=== PATIENT | female | born 1980 | race Caucasian/White ===

== ENCOUNTER 2018-07-05 03:19 | Inpatient (IN) | payer BC ==
--- NOTE | 2018-07-01 10:45 | PCM.LDHP ---
L&D History of Present Illness - General Date of Service: 07/01/18 Admit Problem/Dx: Admission Diagnosis/Problem Admission Diagnosis/Problem Source of Information: Patient History Limitations: Reports: No Limitations - History of Present Illness Introduction:: 38-year-old 001 with 1 prior vaginal delivery SORIN 07/26/18 patient has twin dichorionic diamnionic with presentation breech/breech and discordancy of twins and growth section at 37 weeks 0 days recommended by [facility] because of the discordancy and breech presentation. section is scheduled for Thursday07/05/18 at [address] Garcia expanded function dental assistant. Patient has been seeing MFM throughout this and with discordancy demonstrated on repeat ultrasounds section medically indicated at 37 weeks gestation. Group B strep collected today 07/01/18. Patient will have prophylactic antibiotics which cover group B strep at the time of her section. 02/04/18 blood type O negative, hemoglobin/hematocrit 11.7/34.0 platelets 253, 000. Rubella immune, RPR nonreactive, urine culture no growth after 2 days, hepatitis B surface antigen negative, HIV negative, GC and chlamydia probe negative. 05/21/18 hemoglobin/hematocrit 12.0/35.2 platelets 165,000. One hour OB glucose screen 131. On 05/27/18 3 hour glucose tolerance test fasting 85, 1 hour 154, two- hour 149, 3 hour 80. (Within normal range) antibody screen negative and rogue M given on 05/21/18 07/01/18 group B strep collected. Patient has been having twice weekly [facility] ultrasounds and discordancy has been demonstrated 17% for twin B and therefore medically indicated section at 37 weeks 0 days planned for Thursday07/05/18 This note was created, at least in part, by the use of [employer] voice dictation system. Inadvertent typographical errors, due to software recognition problems, may exist. Both twins reactive on nonstress test today 07/01/18 in clinic. Improves with: Reports: None Worsens with: Reports: None Associated Symptoms: Reports: N - Related Data Allergies/Adverse Reactions: Allergies Allergy/AdvReac Type Severity Reaction Status Date / Time Latex, Natural Rubber Allergy Rash Verified 09/27/15 19:26 Home Medications: Home Meds Bacitracin [Bacitracin Oint] 1 gm TOP DAILY #1 tube 09/27/15 [Rx] Past Medical History - Past Health History Medical/Surgical History: Denies Medical/Surgical History : 2 Para: 1 (1001) LMP (Approximate): (37 weeks 0 days at time of planned surgery with history of twin dichorionic diamnionic and discordancy of 17%) Social & Family History - Family History : Reports: Other (See Below) (Maternal grandmother polycystic kidneys) Other Family History: Family history of infant with Down syndrome H&P Review of Systems - Review of Systems: Review Of Systems: See Below General: Reports: No Symptoms HEENT: Reports: No Symptoms Pulmonary: Reports: No Symptoms Cardiovascular: Reports: No Symptoms Gastrointestinal: Reports: No Symptoms Genitourinary: Reports: No Symptoms Musculoskeletal: Reports: No Symptoms Skin: Reports: No Symptoms Psychiatric: Reports: No Symptoms Neurological: Reports: No Symptoms Hematologic/Lymphatic: Reports: No Symptoms Immunologic: Reports: No Symptoms L&D Exam - Exam Exam: See Below - OB Specific Fundal Height In cm: 43 Movement: Active Heart Tones: Present Heart Tones per Min: 140 (140/135) Heart Rate (FHR) Variability: Moderate (6-25 bmp) Presentation: Breech (Twin gestation breech/breech) - Exam General: Alert, Oriented HEENT: Conjunctiva Clear, Mucosa Moist & [place] Neck: Supple, Trachea Midline Lungs: Clear to Auscultation, Normal Respiratory Effort Cardiovascular: Regular Rate, Regular Rhythm GI/Abdominal Exam: Normal Bowel Sounds, Soft, Non-Tender Genitourinary: Normal external exam (GBS collected 07/01/18) Extremities: Normal Inspection, Normal Range of Motion, Non-Tender, No Pedal Edema, Normal Capillary Refill Skin: Warm, Dry, Intact Neurological: Reflexes Equal Bilateral Psychiatric: Alert, Normal Affect, Normal Mood - Problem List (1) 37 weeks gestation of SNOMED Code(s): 59653925 ICD Code: Z3A.37 - 37 WEEKS GESTATION OF Status: Acute (2) Twin following selective reduction in third trimester SNOMED Code(s): 62352218, 532232448 ICD Code: O30.003 - TWIN PREG, UNSP NUM PLCNTA & AMNIO SACS, THIRD TRIMESTER ; O31.33X0 - CONT PREG AFT ELCTV FETL RDCT OF 1 FTS OR MORE,3RD TRI, UNSP Status: Acute (3) Breech presentation of fetus SNOMED Code(s): 8114822 ICD Code: O32.1XX0 - MATERNAL CARE FOR BREECH PRESENTATION, UNSP Status: Acute Qualifiers: Fetus number: fetus 1 of multiple gestation Qualified Code(s): O32.1XX1 - Maternal care for breech presentation, fetus 1 (4) Advanced maternal age (AMA) in SNOMED Code(s): 217634469 ICD Code: MAK1481 - Status: Acute (5) Discordant growth in twin gestation SNOMED Code(s): 402339430 ICD Code: O30.009 - TWIN , UNSP NUM PLCNTA & AMNIO SACS, UNSP TRIMESTER; O36.5990 - MATERN CARE FOR OTH OR SUSP POOR FETL GRTH, UNSP TRI, UNSP Status: Acute Qualifiers: Fetus number: fetus 2 of multiple gestation Problem List Initiated/Reviewed/Updated: No Assessment/Plan Comment:: Plan medically indicated section per recommendations of maternal medicine Jesse at 37 weeks 0 days due to twin breech/breech with 17 % discordancy
[~2018-07-05 03:19] MED LIST: Sodium Chloride 0.9% 10 ML Syringe FLUSH PRN
[2018-07-05] MEDS ORDERED: Nalbuphine 20 MG/ML 1 ML Syringe IVPUSH PRN (05:00)
[2018-07-05] MEDS ORDERED: Citric Acid/Sodium Citrate Solution 30 ML Cup PO ONE (06:00)
[2018-07-05] MEDS ORDERED: Oxytocin/Lactated Ringers 20 UNIT/1,000 ML BAG IV SCH (06:00)
[2018-07-05] MEDS ORDERED: Metoclopramide 10 MG/2 ML SDV IVPUSH ONE (06:00)
[2018-07-05] MEDS ORDERED: Bupivacaine 0.5% 30 ML SDV ONE (06:36)
[2018-07-05] MEDS ORDERED: Lactated Ringers 2,000 ML ONE (06:37)
[2018-07-05] MEDS ORDERED: Morphine PF 1 MG/ML Amp ONE (06:37)
[2018-07-05] MEDS ORDERED: ceFAZolin 1 GM Vial ONE (06:37)
[2018-07-05] MEDS ORDERED: Oxytocin 10 Units/1 ML SDV ONE ×2 (06:37→06:38)
[2018-07-05] MEDS ORDERED: Ketorolac 30 MG/ML SDV ONE (06:37)
[2018-07-05] MEDS ORDERED: Ondansetron 4 MG/2 ML SDV ONE (06:37)
[2018-07-05] MEDS ORDERED: ceFAZolin 2 GM in Premix Bag 1 BAG IV ONE (06:45)
--- NOTE | 2018-07-05 06:58 | PCM.PREANE ---
Preanesthetic Assessment - Procedure Proposed Procedure: c section primary - Anesthesia/Transfusion/Family Hx Anesthesia History: Prior Anesthesia Without Reaction Family History of Anesthesia Reaction: No Transfusion History: No Prior Transfusion(s) - Review of Systems General: No Symptoms Pulmonary: No Symptoms Cardiovascular: No Symptoms Gastrointestinal: No Symptoms Neurological: No Symptoms Other: Reports: None - Physical Assessment NPO Status Date: 07/04/18 NPO Status Time: 19:00 Pulse: 73 O2 Sat by Pulse Oximetry: 100 Respiratory Rate: 14 Blood Pressure: 108/80 Temperature: 97.9 F Height: 5 ft 8 in Weight: 91.626 kg ASA Class: 2 Mental Status: Alert & Oriented x3 Airway Class: Mallampati = 1 Dentition: Reports: Normal Dentition Thyro-Mental Finger Breadths: 3 Mouth Opening Finger Breadths: 3 ROM/Head Extension: Full Lungs: Clear to Auscultation, Normal Respiratory Effort Cardiovascular: Regular Rate, Regular Rhythm - Lab Values: Laboratory Last Values WBC 10.98 K/mm3 (3.98-10.04) H 07/05/18 05:51 RBC 3.71 M/mm3 (3.98-5.22) L 07/05/18 05:51 Hgb 12.0 gm/L (11.2-15.7) 07/05/18 05:51 Hct 33.7 % (34.1-44.9) L 07/05/18 05:51 MCV 90.8 fl (79.4-94.8) 07/05/18 05:51 MCH 32.3 pg (25.6-32.2) H 07/05/18 05:51 MCHC 35.6 g/dl (32.2-35.5) H 07/05/18 05:51 RDW Std Deviation 42.4 fL (36.4-46.3) 07/05/18 05:51 Plt Count 144 K/mm3 (182-369) L 07/05/18 05:51 MPV 11.1 fl (9.4-12.3) 07/05/18 05:51 Neut % (Auto) 74.5 % (34.0-71.1) H 07/05/18 05:51 Lymph % (Auto) 17.8 % (19.3-51.7) L 07/05/18 05:51 [place]ansom % (Auto) 4.9 % (4.7-12.5) 07/05/18 05:51 Eos % (Auto) 2.5 (0.7-5.8) 07/05/18 05:51 Baso % (Auto) 0.3 % (0.1-1.2) 07/05/18 05:51 Neut # (Auto) 8.19 K/mm3 (1.56-6.13) H 07/05/18 05:51 Lymph # (Auto) 1.95 K/mm3 (1.18-3.74) 07/05/18 05:51 Ransom # (Auto) 0.54 K/mm3 (0.24-0.36) H 07/05/18 05:51 Eos # (Auto) 0.27 K/mm3 (0.04-0.36) 07/05/18 05:51 Baso # (Auto) 0.03 K/mm3 (0.01-0.08) 07/05/18 05:51 - Allergies Allergies/Adverse Reactions: Allergies Allergy/AdvReac Type Severity Reaction Status Date / Time Latex, Natural Rubber Allergy Rash Verified 09/27/15 19:26 - Blood Blood Available: No - Acknowledgements Anesthesia Type Planned: Spinal Pt an Appropriate Candidate for the Planned Anesthesia: Yes Alternatives and Risks of Anesthesia Discussed w Pt/Guardian: Yes Pt/Guardian Understands and Agrees with Anesthesia Plan: Yes PreAnesthesia Questionnaire - Past Health History Medical/Surgical History: Denies Medical/Surgical History HEENT History: Reports: None Cardiovascular History: Reports: None Respiratory History: Reports: None Gastrointestinal History: Reports: GERD Other Gastrointestinal History: Past 2 weeks of twin gestation; no meds required WARE CARRIER History: Reports: : 2 (37 weeks) Para: 1 Musculoskeletal History: Reports: None Hematologic History: Reports: Folic Acid - Infectious Disease History Infectious Disease History: Reports: None - Past Surgical History HEENT Surgical History: Reports: Oral Surgery Other HEENT Surgeries/Procedures: [place] teeth extracted age 13 yo. GI Surgical History: Reports: None Dermatological Surgical History: Reports: None - History Comment History Comment: vits. fe. folic acid. asa. ca. vit c - SUBSTANCE USE Smoking Status *Q: Never Smoker Tobacco Use Within Last Twelve Months: No Second Hand Smoke Exposure: No Days Per Week of Alcohol Use: 0 Recreational Drug Use History: No - HOME MEDS Home Medications: Home Meds Bacitracin [Bacitracin Oint] 1 gm TOP DAILY #1 tube 09/27/15 [Rx] - CURRENT (IN HOUSE) MEDS Current Meds: Current Medications Cefazolin Sodium/Dextrose 2 gm (/ Premix) 50 mls @ 100 mls/hr IV ONETIME ONE Stop: 07/05/18 07:14 Lactated Ringer's (Ringers, Lactated) 1,000 mls @ 125 mls/hr IV ASDIRECTED MAU Oxytocin/Lactated Ringer's (Pitocin In Lr 20 Units/1,000 Ml) 20 unit in 1,000 mls @ 500 mls/hr IV TITRATE MAU; Protocol Nalbuphine HCl (Nubain) 10 mg IVPUSH Q2H PRN PRN Reason: pain Sodium Chloride (Saline Flush) 10 ml FLUSH ASDIRECTED PRN PRN Reason: Keep Vein Open Discontinued Medications Bupivacaine HCl (Marcaine 0.5%) Confirm Administered Dose 30 ml .ROUTE .STK-MED ONE Stop: 07/05/18 06:37 Cefazolin Sodium (Ancef) Confirm Administered Dose 2 gm .ROUTE .STK-MED ONE Stop: 07/05/18 06:38 Citric Acid/Sodium Citrate (Bicitra Solution) 30 ml PO ONETIME ONE Stop: 07/05/18 06:01 Lactated Ringer's (Ringers, Lactated) Confirm Administered Dose 2,000 mls @ as directed .ROUTE .STK-MED ONE Stop: 07/05/18 06:38 Ketorolac Tromethamine (Toradol) Confirm Administered Dose 30 mg .ROUTE .STK- MED ONE Stop: 07/05/18 06:38 Metoclopramide HCl (Reglan) 10 mg IVPUSH ONETIME ONE Stop: 07/05/18 06:01 Morphine Sulfate (Duramorph Pf) Confirm Administered Dose 1 mg .ROUTE .STK-MED ONE Stop: 07/05/18 06:38 Ondansetron HCl (Zofran) Confirm Administered Dose 4 mg .ROUTE .STK-MED ONE Stop: 07/05/18 06:38 Oxytocin (Pitocin) Confirm Administered Dose 10 unit .ROUTE .STK-MED ONE Stop: 07/05/18 06:38 Oxytocin (Pitocin) Confirm Administered Dose 10 unit .ROUTE .[facility]-MED ONE Stop: 07/05/18 06:39
[2018-07-05] MEDS: Lactated Ringers 1,000 ML IV SCH ×2 (07:08→07:09)
[2018-07-05] MEDS ORDERED: Phenylephrine/Normal Saline 100 MCG/ML 10 ML Syringe ONE (07:26)
[2018-07-05] MEDS ORDERED: ePHEDrine 50 MG/ML SDV ONE (07:26)
[2018-07-05] MEDS ORDERED: diphenhydrAMINE 50 MG/ML SDV IVPUSH PRN ×2 (07:28→10:10)
[2018-07-05] MEDS ORDERED: Ondansetron 4 MG/2 ML SDV IVPUSH PRN (07:28)
[2018-07-05] MEDS ORDERED: fentaNYL 100 MCG/2 ML SDV IVPUSH PRN (07:28)
--- NOTE | 2018-07-05 08:17 | PCM.POSTAN ---
POST ANESTHESIA ASSESSMENT - MENTAL STATUS Mental Status: Alert, Oriented - VITAL SIGNS Pulse Rate: 74 SaO2: 98 Resp Rate: 14 Blood Pressure: 109/69 Temperature: 98 F - RESPIRATORY Respiratory Status: Respiratory Rate WNL, Airway Patent, O2 Saturation Stable, Supplemental Oxygen - CARDIOVASCULAR CV Status: Pulse Rate WNL, Blood Pressure Stable - GASTROINTESTINAL GI Status: No Symptoms - PAIN Pain Score: 0 - POST OP HYDRATION Hydration Status: Adequate & Stable
--- NOTE | 2018-07-05 08:28 | PCM.OPNOTE ---
- General Post-Op/Procedure Note Date of Surgery/Procedure: 07/05/18 Operative Procedure(s): Primary low segment transverse Pre Op Diagnosis: Breech breech presentation 37 weeks 0 days estimated gestational age early delivery medically indicated and recommended by maternal- medicine because of suspected 17% discordance and twins Post-Op Diagnosis: Same Anesthesia Technique: Spinal Primary Surgeon: Wilson Santos Secondary Surgeon: Adrián Winters Anesthesia Provider: Nick Benton Reason Kier Drier Was Necessary: Asst. surgery, decrease comorbidity and mortality. Retraction at surgery. Role of Kier Drier: Asst. surgery, decrease comorbidity and mortality. Retraction at surgery. Fluid Replacement, Intraop: 2,500 Output, Urine Amount: 150 EBL in mLs: 1,000 Drain/Tube Comments:: [place] Complications: None Condition: Good Free Text/Narrative:: Intake & Output 07/04/18 07/05/18 07/05/18 22:59 06:59 14:59 Intake Total 1000 Balance 1000 Patient was transported to the operating room and placed under spinal anesthesia in the supine position with a wedge under the right hip and right flank. SCDs in place and functioning prior surgery. Ancef 2 g given IV preop. Prepared and draped in a sterile fashion adequate level of anesthesia was confirmed and patient's was brought to the operating room. Injecting 20 mL of 0.25% Marcaine area of the planned incision which had been marked with a surgical marking pen, Pfannenstiel incision was made and care was sharp section to into the anterior fascia peritoneal cavity was entered without difficulty bladder flap. Pushed caudad low segment transverse performed. Twin A was delivered at 0738 hrs. breech presentation left sacrum anterior, having delivered breech the legs were carefully flexed and extended and delivered without difficulty and right and left arm then flexed and delivered without difficulty head was delivered without difficulty. The cord was marked with one plastic clamp for pediatrics and one straight clamp for OB. Cord blood was not collected into both twins delivered. Twin B was delivered by performing amniotomy and confirming both feet grasped and delivered double footling breech , and carefully flexing upper extremities and head delivered without difficulty. Twin B umbilical cord clamped with 2 plastic clamps were pediatrics and one curved clamp for OB. Twin A delivered at 0738 hrs. twin B delivered at 0739 hrs. twin A 9/9 twin B 8/8 twin A weight 20/4/40 grams/5 lbs. 6 oz. twin B 3030 g/[address] Garcia director of undergraduate admissions in attendance at delivery. Cord blood was then collected from twin A's and twin B's cord. The center was removed manually inspected and sent to pathology for tissue evaluation. Pathology form was completed after surgery. Endometrial cavity was inspected free of membranes and remnants of placenta sponge needle pack and instrument count correct times one the uterine incision closed in 2 layers with running locking suture of 0 Monocryl for the first layer, second layer a modified Lembert imbricating suture. 4 additional [id number] sutures were placed to the left angle and one in the middle and one the right side of the uterine incision for hemostasis. Both tubes and ovaries were normal. Clots were cleaned from the gutters and cul-de-sac and uterus replaced into the abdominal cavity. Sponge needle pack and aspirin count were correct 2 and the abdominal cavity was closed utilizing #1 PDS for the anterior fascia and skin was closed with subcuticular 3-0 Monocryl Dermabond Preneo applied. Patient was transported postanesthesia care unit in satisfactory condition no blood transfusions were required. Clots were cleaned from the vagina at the end of the procedure prior transported postanesthesia care unit. Toradol given at 0800 hrs. This note was created, at least in part, by the use of [employer] voice dictation system. Inadvertent typographical errors, due to software recognition problems, may exist.
[2018-07-05] MEDS ORDERED: ePHEDrine 50 MG/ML SDV IVPUSH PRN (10:10)
[2018-07-05] MEDS ORDERED: Ibuprofen 600 MG Tab PO PRN (10:10)
[2018-07-05] MEDS ORDERED: Lanolin 100% Cream 7 GM Tube TOP PRN (10:10)
[2018-07-05] MEDS ORDERED: Ondansetron 4 MG/2 ML SDV IV PRN (10:10)
[2018-07-05] MEDS ORDERED: Acetaminophen 325 MG Tab PO PRN (10:10)
[2018-07-05] MEDS ORDERED: Dextrose 5%-Lactated Ringers 1,000 ML IV SCH (10:10)
[2018-07-05] MEDS ORDERED: Docusate Sodium 100 MG Cap PO PRN (10:10)
[2018-07-05] MEDS ORDERED: Naloxone 0.4 MG/ML SDV IVPUSH PRN (10:10)
[2018-07-05] MEDS ORDERED: Sodium Chloride 0.9% 10 ML Syringe FLUSH PRN (10:10)
[2018-07-05] MEDS: Ketorolac 30 MG/ML SDV IVPUSH PRN ×2 (14:02→20:21)
[2018-07-05] MEDS: Simethicone 80 MG Tab.Chew PO SCH ×3 (14:09→19:29)
[2018-07-06] MEDS: Simethicone 80 MG Tab.Chew PO SCH ×6 (01:13→23:00)
[2018-07-06] MEDS: Ketorolac 30 MG/ML SDV IVPUSH PRN (02:03)
[2018-07-06] MEDS: Acetaminophen/oxyCODONE 325-5 MG Tab PO PRN ×3 (07:52→20:06)
--- NOTE | 2018-07-06 08:11 | PCM48HPAN ---
Post Anesthesia Note - EVALUATION WITHIN 48HRS OF ANESTHETIC Vital Signs in Normal Range: Yes Patient Participated in Evaluation: Yes Respiratory Function Stable: Yes Airway Patent: Yes Cardiovascular Function Stable: Yes Hydration Status Stable: Yes Pain Control Satisfactory: Yes Nausea and Vomiting Control Satisfactory: Yes Mental Status Recovered: Yes
--- NOTE | 2018-07-06 13:13 | PCM.SN ---
- Free Text/Narrative Note: day one/postop day one Afebrile. Patient breast-feeding. Abdomen is soft uterus involuting normally incision normal no heavy vaginal bleeding no leg cramping. Twin A is not latched on as yet. Patient may not be ready for dismissal tomorrow.
[2018-07-06] MEDS: Ibuprofen 600 MG Tab PO PRN (20:04)
[2018-07-07] MEDS: Acetaminophen/oxyCODONE 325-5 MG Tab PO PRN ×4 (02:10→21:18)
[2018-07-07] MEDS: Ibuprofen 600 MG Tab PO PRN ×2 (05:36→13:00)
--- NOTE | 2018-07-07 08:33 | PCM.SN ---
- Free Text/Narrative Note: PP/POD #2 Afebrile. Incision normal. Uterus involuting normally, no heavy vaginal bleeding , no leg cramping. Probably home tomorrow
[2018-07-07] MEDS: Simethicone 80 MG Tab.Chew PO SCH ×4 (08:45→21:18)
[2018-07-08] MEDS: Acetaminophen/oxyCODONE 325-5 MG Tab PO PRN ×2 (03:49→08:32)
[2018-07-08] MEDS: Simethicone 80 MG Tab.Chew PO SCH (08:31)
--- NOTE | 2018-07-08 08:31 | PCM.DCSUM1 ---
Discharge Summary - Hospital Course Free Text/Narrative:: After obtaining appropriate consent she was taken the the operating room where general anesthetic was administered. She was prepped and draped in the usual sterile fashion in high lithotomy using asher stirrups. A weighted speculum was placed in the posterior vagina and a carolina utilized anteriorly to visualize the cervix which was grasped with a single toothed tenaculum and placed on traction. A uterine manipulator was then advanced into the uterus. Attention was re-directed to the abdomen and a 5 mm skin incision was made in the patient's umbilical fold. A blunt tipped trocar was advanced under direct visualization using the laparoscope. The abdomen was insufflated and no evidence of injury upon entry was noted. General survey of the abdomen reveal [ normal] uterus and ovaries. A 5 mm incision was then made on each the right and left side and a blunt tipped trocar was advanced under direct visualization. The left ovary was elevated and the IP ligement was cauterized and transected with the Ligasure after the ureter was identified. The dissection was continued to the round ligament. The round ligament was then cauterized and transected. The bladder flap was created starting on the left. Bladder was dissected off the cervix. The uterine artery and broad ligament on the left was serial cauterized and transected to the level of the cervix. The right IP, round ligament, broad ligament and uterine artery were cauterized and transected in a similar manner. No bleeding was noted at any of the pedicles. The pelvis was irrigated and suctioned. All instruments were removed and the gas was released. Attention was redirected to the vagina. Area of intended colpotomy injected with 25% marcaine with epinepherine. Incision made with scapel. The posterior cul-de-sac was entered sharply with the Ferrara scissors. The long weighted speculum was placed. The uterosacral ligaments were identified bilaterally, clamped, transected with ligasure. These were tagged for later reference. A second clamp was placed onto the cardinal ligament bilaterally, this was transected and ligasure ligated. Attention was turned anteriorly. Blunt and sharp dissection was used to mobilize the bladder off the cervix. The anterior cul-de-sac was [default value ] entered sharply. The cardinal ligament was serially clamped, transected and suture ligated. The Boni retractor was advanced. The cardinal ligament was then clamped to met the dissection from above including the uterine vessels bilaterally. The specimen was delivered and handed off. Inspection of the pedicles noted hemostasis. The posterior cuff was run with 0- vicryl in a running fashion. The cuff was closed using 0 vicryl figure of eights in a vertical fashion. The retractors were removed and the abdomen was reinsufflated. All pedicles were hemostatic. All instruments were removed from the abdomen and the incisions were closed with 4-0 vicryl and covered with dermabond. The cystoscope was obtained. Clear urine was noted. A survey of the bladder revealed no injury, bilateral ureteral jets and no stitches present. The bladder was drained. She was repositioned supine, draping removed and then taken to PACU in stable condition. Needle, sponge and instrument counts were correct X 3. HPI Initial Comments: After obtaining appropriate consent she was taken the the operating room where general anesthetic was administered. She was prepped and draped in the usual sterile fashion in high lithotomy using asher stirrups. A weighted speculum was placed in the posterior vagina and a carolina utilized anteriorly to visualize the cervix which was grasped with a single toothed tenaculum and placed on traction. A uterine manipulator was then advanced into the uterus. Attention was re-directed to the abdomen and a 5 mm skin incision was made in the patient's umbilical fold. A blunt tipped trocar was advanced under direct visualization using the laparoscope. The abdomen was insufflated and no evidence of injury upon entry was noted. General survey of the abdomen reveal [ normal] uterus and ovaries. A 5 mm incision was then made on each the right and left side and a blunt tipped trocar was advanced under direct visualization. The left ovary was elevated and the IP ligement was cauterized and transected with the Ligasure after the ureter was identified. The dissection was continued to the round ligament. The round ligament was then cauterized and transected. The bladder flap was created starting on the left. Bladder was dissected off the cervix. The uterine artery and broad ligament on the left was serial cauterized and transected to the level of the cervix. The right IP, round ligament, broad ligament and uterine artery were cauterized and transected in a similar manner. No bleeding was noted at any of the pedicles. The pelvis was irrigated and suctioned. All instruments were removed and the gas was released. Attention was redirected to the vagina. Area of intended colpotomy injected with 25% marcaine with epinepherine. Incision made with scapel. The posterior cul-de-sac was entered sharply with the Ferrara scissors. The long weighted speculum was placed. The uterosacral ligaments were identified bilaterally, clamped, transected with ligasure. These were tagged for later reference. A second clamp was placed onto the cardinal ligament bilaterally, this was transected and ligasure ligated. Attention was turned anteriorly. Blunt and sharp dissection was used to mobilize the bladder off the cervix. The anterior cul-de-sac was [default value ] entered sharply. The cardinal ligament was serially clamped, transected and suture ligated. The Boni retractor was advanced. The cardinal ligament was then clamped to met the dissection from above including the uterine vessels bilaterally. The specimen was delivered and handed off. Inspection of the pedicles noted hemostasis. The posterior cuff was run with 0- vicryl in a running fashion. The cuff was closed using 0 vicryl figure of eights in a vertical fashion. The retractors were removed and the abdomen was reinsufflated. All pedicles were hemostatic. All instruments were removed from the abdomen and the incisions were closed with 4-0 vicryl and covered with dermabond. The cystoscope was obtained. Clear urine was noted. A survey of the bladder revealed no injury, bilateral ureteral jets and no stitches present. The bladder was drained. She was repositioned supine, draping removed and then taken to PACU in stable condition. Needle, sponge and instrument counts were correct X 3. Brief History: After obtaining appropriate consent she was taken the the operating room where general anesthetic was administered. She was prepped and draped in the usual sterile fashion in high lithotomy using asher stirrups. A weighted speculum was placed in the posterior vagina and a carolina utilized anteriorly to visualize the cervix which was grasped with a single toothed tenaculum and placed on traction. A uterine manipulator was then advanced into the uterus. Attention was re-directed to the abdomen and a 5 mm skin incision was made in the patient's umbilical fold. A blunt tipped trocar was advanced under direct visualization using the laparoscope. The abdomen was insufflated and no evidence of injury upon entry was noted. General survey of the abdomen reveal [normal] uterus and ovaries. A 5 mm incision was then made on each the right and left side and a blunt tipped trocar was advanced under direct visualization. The left ovary was elevated and the IP ligement was cauterized and transected with the Ligasure after the ureter was identified. The dissection was continued to the round ligament. The round ligament was then cauterized and transected. The bladder flap was created starting on the left. Bladder was dissected off the cervix. The uterine artery and broad ligament on the left was serial cauterized and transected to the level of the cervix. The right IP, round ligament, broad ligament and uterine artery were cauterized and transected in a similar manner. No bleeding was noted at any of the pedicles. The pelvis was irrigated and suctioned. All instruments were removed and the gas was released. Attention was redirected to the vagina. Area of intended colpotomy injected with 25% marcaine with epinepherine. Incision made with scapel. The posterior cul-de-sac was entered sharply with the Ferrara scissors. The long weighted speculum was placed. The uterosacral ligaments were identified bilaterally, clamped, transected with ligasure. These were tagged for later reference. A second clamp was placed onto the cardinal ligament bilaterally, this was transected and ligasure ligated. Attention was turned anteriorly. Blunt and sharp dissection was used to mobilize the bladder off the cervix. The anterior cul-de-sac was [default value] entered sharply. The cardinal ligament was serially clamped, transected and suture ligated. The Boni retractor was advanced. The cardinal ligament was then clamped to met the dissection from above including the uterine vessels bilaterally. The specimen was delivered and handed off. Inspection of the pedicles noted hemostasis. The posterior cuff was run with 0-vicryl in a running fashion. The cuff was closed using 0 vicryl figure of eights in a vertical fashion. The retractors were removed and the abdomen was reinsufflated. All pedicles were hemostatic. All instruments were removed from the abdomen and the incisions were closed with 4-0 vicryl and covered with dermabond. The cystoscope was obtained. Clear urine was noted. A survey of the bladder revealed no injury, bilateral ureteral jets and no stitches present. The bladder was drained. She was repositioned supine, draping removed and then taken to PACU in stable condition. Needle, sponge and instrument counts were correct X 3. Diagnosis: Stroke: No - Discharge Data Discharge Date: 07/08/18 Discharge Disposition: Home, Self-Care 01 Condition: Good - Discharge Diagnosis/Problem(s) (1) 37 weeks gestation of SNOMED Code(s): 08265267 ICD Code: Z3A.37 - 37 WEEKS GESTATION OF Status: Acute Current Visit: No (2) Twin following selective reduction in third trimester SNOMED Code(s): 73762061, 939849026 ICD Code: O30.003 - TWIN PREG, UNSP NUM PLCNTA & AMNIO SACS, THIRD TRIMESTER ; O31.33X0 - CONT PREG AFT ELCTV FETL RDCT OF 1 FTS OR MORE,3RD TRI, UNSP Status: Acute Current Visit: No (3) Breech presentation of fetus SNOMED Code(s): 9933259 ICD Code: O32.1XX0 - MATERNAL CARE FOR BREECH PRESENTATION, UNSP Status: Acute Current Visit: No Qualifiers: Fetus number: fetus 1 of multiple gestation Qualified Code(s): O32.1XX1 - Maternal care for breech presentation, fetus 1 (4) Advanced maternal age (AMA) in SNOMED Code(s): 523619580 ICD Code: USE0529 - Status: Acute Current Visit: No (5) Discordant growth in twin gestation SNOMED Code(s): 962633415 ICD Code: O30.009 - TWIN , UNSP NUM PLCNTA & AMNIO SACS, UNSP TRIMESTER; O36.5990 - MATERN CARE FOR OTH OR SUSP POOR FETL GRTH, UNSP TRI, UNSP Status: Acute Current Visit: No Qualifiers: Fetus number: fetus 2 of multiple gestation - Patient Summary/Data Operative Procedure(s) Performed: Primary low segment transverse Complications: none Consults: none Hospital Course: uneventful - Patient Instructions Diet: Usual Diet as Tolerated Driving: Do Not Drive (x2 weeks) Showering/Bathing: May Shower, No Tub Bathing/Swimming (x6 weeks) Wound/Incision Care: Keep Operative Site/Wound Site Clean and Dry Notify Provider of: Fever, Increased Pain, Swelling and Redness, Drainage, Nausea and/or Vomiting - Discharge Plan *PRESCRIPTION DRUG MONITORING PROGRAM REVIEWED*: Yes *COPY OF PRESCRIPTION DRUG MONITORING REPORT IN PATIENT CRISTINO: Yes Prescriptions/Med Rec: Acetaminophen/oxyCODONE [Percocet 325-5 MG] 1 tab PO BEDTIME PRN #10 tablet PRN Reason: Pain (Moderate 4-6) Home Medications: Home Meds Bacitracin [Bacitracin Oint] 1 gm TOP DAILY #1 tube 09/27/15 [Rx] Acetaminophen [Tylenol] 650 mg PO Q6H PRN tablet 07/08/18 [Rx] Acetaminophen/oxyCODONE [Percocet 325-5 MG] 1 tab PO BEDTIME PRN #10 tablet [Rx] Docusate Sodium [Colace] 100 mg PO Q12H PRN cap 07/08/18 [Rx] Ibuprofen [Motrin] 200 mg PO Q6H PRN tablet 07/08/18 [Rx] Lanolin [Lansinoh HPA] 1 applic TOP ASDIRECTED PRN tube 07/08/18 [Rx] Simethicone 80 mg PO PCBED tab.chew 07/08/18 [Rx] Referrals: Wilson Santos MD [Primary Care Provider] - (07/20/18) - Discharge Summary/Plan Comment DC Time >30 min.: No - Patient Data Vitals - Most Recent: Last Vital Signs Temp 97.9 F 07/08/18 03:53 Pulse 71 07/08/18 03:53 Resp 12 07/08/18 03:53 BP 127/75 07/08/18 03:53 Pulse Ox 97 07/08/18 03:53 Weight - Most Recent: 202 lb Med Orders - Current: Current Medications Acetaminophen (Tylenol) 650 mg PO Q4H PRN PRN Reason: mild pain or fever Diphenhydramine HCl (Benadryl) 25 mg IVPUSH Q6H PRN PRN Reason: Itching or Nausea Docusate Sodium (Colace) 100 mg PO Q12H PRN PRN Reason: Constipation Last Admin: 07/07/18 21:38 Dose: 100 mg Emollient Ointment (Lansinoh Hpa) 0 gm TOP ASDIRECTED PRN PRN Reason: Sore Nipples Ephedrine Sulfate (Ephedrine Sulfate) 5 mg IVPUSH SEECOMMENT PRN PRN Reason: Other Ibuprofen (Motrin) 600 mg PO Q6H PRN PRN Reason: mild pain or fever Last Admin: 07/07/18 13:00 Dose: 600 mg Naloxone HCl (Narcan) 0.1 mg IVPUSH SEECOMMENT PRN PRN Reason: Respiratory Depression Ondansetron HCl (Zofran) 4 mg IV Q8H PRN PRN Reason: Nausea/Vomiting Oxycodone/Acetaminophen (Percocet 325-5 Mg) 1 tab PO Q4H PRN PRN Reason: Pain (moderate 4-6) Last Admin: 07/08/18 03:49 Dose: 1 tab Simethicone (Simethicone) 80 mg PO PCBED MAU Last Admin: 07/07/18 21:18 Dose: 80 mg Sodium Chloride (Saline Flush) 10 ml FLUSH ASDIRECTED PRN PRN Reason: Keep Vein Open Discontinued Medications Bupivacaine HCl (Marcaine 0.5%) Confirm Administered Dose 30 ml .ROUTE .STK-MED ONE Stop: 07/05/18 06:37 Last Admin: 07/05/18 07:34 Dose: 20 ml Cefazolin Sodium (Ancef) Confirm Administered Dose 2 gm .ROUTE .STK-MED ONE Stop: 07/05/18 06:38 Citric Acid/Sodium Citrate (Bicitra Solution) 30 ml PO ONETIME ONE Stop: 07/05/18 06:01 Last Admin: 07/05/18 07:08 Dose: 30 ml Diphenhydramine HCl (Benadryl) 25 mg IVPUSH Q6H PRN PRN Reason: pruritis Ephedrine Sulfate (Ephedrine Sulfate) Confirm Administered Dose 50 mg .ROUTE .STK-MED ONE Stop: 07/05/18 07:27 Fentanyl (Sublimaze) 50 mcg IVPUSH Q5M PRN PRN Reason: Pain Cefazolin Sodium/Dextrose 2 gm (/ Premix) 50 mls @ 100 mls/hr IV ONETIME ONE Stop: 07/05/18 07:14 Lactated Ringer's (Ringers, Lactated) 1,000 mls @ 125 mls/hr IV ASDIRECTED MAU Last Admin: 07/05/18 07:09 Dose: 125 mls/hr Oxytocin/Lactated Ringer's (Pitocin In Lr 20 Units/1,000 Ml) 20 unit in 1,000 mls @ 500 mls/hr IV TITRATE MAU; Protocol Lactated Ringer's (Ringers, Lactated) Confirm Administered Dose 2,000 mls @ as directed .ROUTE .[facility]-MED ONE Stop: 07/05/18 06:38 Dextrose/Lactated Ringer's (Dextrose 5%-Lactated Ringers) 1,000 mls @ 125 mls/ hr IV ASDIRECTED MAU Stop: 07/05/18 18:09 Last Admin: 07/05/18 13:03 Dose: 125 mls/hr Ibuprofen (Motrin) 600 mg PO Q6H PRN PRN Reason: mild pain or fever Ketorolac Tromethamine (Toradol) Confirm Administered Dose 30 mg .ROUTE .ST- MED ONE Stop: 07/05/18 06:38 Ketorolac Tromethamine (Toradol) 30 mg IVPUSH Q6H PRN PRN Reason: Pain Stop: 07/06/18 02:00 Last Admin: 07/06/18 02:03 Dose: 30 mg Metoclopramide HCl (Reglan) 10 mg IVPUSH ONETIME ONE Stop: 07/05/18 06:01 Last Admin: 07/05/18 07:08 Dose: 10 mg Morphine Sulfate (Duramorph Pf) Confirm Administered Dose 1 mg .ROUTE .ST-MED ONE Stop: 07/05/18 06:38 Nalbuphine HCl (Nubain) 10 mg IVPUSH Q2H PRN PRN Reason: pain Ondansetron HCl (Zofran) Confirm Administered Dose 4 mg .ROUTE .ST-MED ONE Stop: 07/05/18 06:38 Ondansetron HCl (Zofran) 4 mg IVPUSH ONETIME PRN PRN Reason: Nausea/Vomiting Oxytocin (Pitocin) Confirm Administered Dose 10 unit .ROUTE .STK-MED ONE Stop: 07/05/18 06:38 Oxytocin (Pitocin) Confirm Administered Dose 10 unit .ROUTE .[facility]-MED ONE Stop: 07/05/18 06:39 Phenylephrine HCl (Phenylephrine In Ns 100 Mcg/Ml) Confirm Administered Dose 1 mg .ROUTE .STK-MED ONE Stop: 07/05/18 07:27 Sodium Chloride (Saline Flush) 10 ml FLUSH ASDIRECTED PRN PRN Reason: Keep Vein Open
[2018-07-08 11:30] VITALS: BP 134/83
== END 2018-07-08 10:35 | disposition home or self-care (01) | DRG 540 ==
LOC: JD.OB 04:52
PROVIDERS: ADMIT Obstetrics & Gynecology; ATTEND Obstetrics & Gynecology
PROC: 10D00Z1 Extraction of Products of Conception, Low, Open Approach (ICD-10-PCS; principal; 2018-07-05)
PROC: 6A550ZT Pheresis of Cord Blood Stem Cells, Single (ICD-10-PCS; principal; 2018-07-05)
DX: O30.043 Twin pregnancy, dichorionic/diamniotic, third trimester (principal); O32.1XX1 Maternal care for breech presentation, fetus 1; O36.5932 Maternal care for other known or suspected poor fetal growth, third trimester, fetus 2; Z3A.37 37 weeks gestation of pregnancy; Z37.2 Twins, both liveborn; Z91.040 Latex allergy status; O32.8XX2 Maternal care for other malpresentation of fetus, fetus 2
CPT/HCPCS: 01961; 36415; 59025; 85025; 86592; 86850; 86870; 86900; 86901; A9270-GY; J0690; J1885; J2274; J2370; J2405; J2590; J2765; J3490; J7042; J7120

== ENCOUNTER 2019-03-15 09:43 | Day surgery (SDC) | payer BC ==
[~2019-03-15 09:43] MED LIST changes: +Lactated Ringers 1,000 ML IV SCH; +Lidocaine 1%/Sod Bicarbonate in NS 8.4% 1 ML Syringe IDERM PRN; +Midazolam 1 MG/ML 2 ML SDV ONE; +fentaNYL 250 MCG/5 ML SDV ONE
[2019-03-15] MEDS ORDERED: Propofol 200 MG/20 ML SDV ONE (10:05)
[2019-03-15] MEDS ORDERED: Lidocaine 1% with EPINEPHrine 1:100,000 20 ML MDV ONE (10:06)
[2019-03-15] MEDS ORDERED: Bupivacaine 0.5%/EPINEPHrine 1:200,000 50 ML MDV ONE (10:14)
--- NOTE | 2019-03-15 10:21 | PCM.PREANE ---
Preanesthetic Assessment - Anesthesia/Transfusion/Family Hx Anesthesia History: Prior Anesthesia Without Reaction Family History of Anesthesia Reaction: No Transfusion History: No Prior Transfusion(s) - Review of Systems General: No Symptoms Pulmonary: No Symptoms Cardiovascular: No Symptoms Gastrointestinal: No Symptoms Neurological: No Symptoms - Physical Assessment NPO Status Date: 03/15/19 NPO Status Time: 02:00 (liquids) Weight: 74 kg ASA Class: 1 Mental Status: Alert & Oriented x3 Airway Class: Mallampati = 2 Dentition: Reports: Normal Dentition Thyro-Mental Finger Breadths: 3 Mouth Opening Finger Breadths: 3 ROM/Head Extension: Full Lungs: Clear to Auscultation, Normal Respiratory Effort Cardiovascular: Regular Rate, Regular Rhythm - Lab Values: Laboratory Last Values Urine HCG, Qual Negative (NEGATIVE) 03/15/19 09:52 - Allergies Allergies/Adverse Reactions: Allergies Allergy/AdvReac Type Severity Reaction Status Date / Time Latex, Natural Rubber Allergy Rash Verified 03/14/19 10:17 - Blood Blood Available: No Product(s) Available: None - Anesthesia Plan Pre-Op Medication Ordered: None - Acknowledgements Anesthesia Type Planned: General Anesthesia Pt an Appropriate Candidate for the Planned Anesthesia: Yes Alternatives and Risks of Anesthesia Discussed w Pt/Guardian: Yes Pt/Guardian Understands and Agrees with Anesthesia Plan: Yes PreAnesthesia Questionnaire - Past Health History Medical/Surgical History: Denies Medical/Surgical History HEENT History: Reports: None Cardiovascular History: Reports: None Respiratory History: Reports: None Gastrointestinal History: Reports: GERD Other Gastrointestinal History: Past 2 weeks of twin gestation; no meds required Genitourinary History: Reports: None 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: , Other (See Below) Other OB/BYN History: HEAVY MENSES, RIGHT BREAST LUMP Musculoskeletal History: Reports: None Neurological History: Reports: None Psychiatric History: Reports: None Endocrine/Metabolic History: Reports: None Hematologic History: Reports: None, Folic Acid Immunologic History: Reports: None Oncologic (Cancer) History: Reports: None Dermatologic History: Reports: None - Infectious Disease History Infectious Disease History: Reports: None - Past Surgical History Head Surgeries/Procedures: Reports: None HEENT Surgical History: Reports: Oral Surgery Other HEENT Surgeries/Procedures: [place] teeth extracted age 13 yo. Cardiovascular Surgical History: Reports: None Respiratory Surgical History: Reports: None GI Surgical History: Reports: None Female Surgical History: Reports: Section Endocrine Surgical History: Reports: None Neurological Surgical History: Reports: None Musculoskeletal Surgical History: Reports: None Oncologic Surgical History: Reports: None Dermatological Surgical History: Reports: None - History Comment History Comment: vits. fe. folic acid. asa. ca. vit c - SUBSTANCE USE Smoking Status *Q: Never Smoker Recreational Drug Use History: No - HOME MEDS Home Medications: Home Meds Multivitamin [Daily Multiple Vitamin] 1 tab PO DAILY 03/14/19 [History] Norethindrone 0.35 mg PO DAILY 03/14/19 [History] - CURRENT (IN HOUSE) MEDS Current Meds: Current Medications Lactated Ringer's (Ringers, Lactated) 1,000 mls @ 125 mls/hr IV ASDIRECTED MAU Stop: 03/15/19 23:00 Lidocaine/Sodium Bicarbonate (Buffered Lidocaine 1% In Ns 8.4%) 0.25 ml IDERM ONETIME PRN PRN Reason: Prior to IV Start Stop: 03/15/19 18:00 Sodium Chloride (Saline Flush) 10 ml FLUSH ASDIRECTED PRN PRN Reason: Keep Vein Open Stop: 03/15/19 18:00 Discontinued Medications Bupivacaine HCl/Epinephrine Bitart (Marcaine 0.5%/Epinephrine 1:200,000) Confirm Administered Dose 50 ml .ROUTE .STK-MED ONE Stop: 03/15/19 10:15 Fentanyl (Sublimaze) Confirm Administered Dose 250 mcg .ROUTE .STK-MED ONE Stop: 03/15/19 09:38 Lidocaine/Epinephrine (Xylocaine 1% With Epinephrine 1:100,000) Confirm Administered Dose 20 ml .ROUTE .STK-MED ONE Stop: 03/15/19 10:07 Midazolam HCl (Versed 1 Mg/Ml) Confirm Administered Dose 2 mg .ROUTE .STK-MED ONE Stop: 03/15/19 09:38 Propofol (Diprivan 20 Ml) Confirm Administered Dose 200 mg .ROUTE .STK-MED ONE Stop: 03/15/19 10:06
[2019-03-15] MEDS ORDERED: Ondansetron 4 MG/2 ML SDV ONE (10:27)
[2019-03-15] MEDS ORDERED: ceFAZolin 1 GM Vial ONE (10:27)
[2019-03-15] MEDS ORDERED: Ketorolac 30 MG/ML SDV ONE (10:27)
[2019-03-15] MEDS ORDERED: Dexamethasone 4 MG/ML 5 ML MDV ONE (10:27)
[2019-03-15] MEDS ORDERED: Ondansetron 4 MG/2 ML SDV IVPUSH PRN (11:28)
[2019-03-15] MEDS ORDERED: fentaNYL 100 MCG/2 ML SDV IVPUSH PRN (11:28)
[2019-03-15] MEDS ORDERED: diphenhydrAMINE 50 MG/ML SDV IVPUSH PRN (11:28)
--- NOTE | 2019-03-15 11:28 | PCM.POSTAN ---
POST ANESTHESIA ASSESSMENT - MENTAL STATUS Mental Status: Alert, Oriented - VITAL SIGNS Vital Signs: Last Vital Signs Temp 36.5 C 03/15/19 09:55 Pulse 88 03/15/19 09:55 Resp 16 03/15/19 09:55 BP 118/73 03/15/19 09:55 Pulse Ox 99 03/15/19 09:55 - RESPIRATORY Respiratory Status: Respiratory Rate WNL, Airway Patent, O2 Saturation Stable, Supplemental Oxygen - CARDIOVASCULAR CV Status: Pulse Rate WNL, Blood Pressure Stable - GASTROINTESTINAL GI Status: No Symptoms - PAIN Pain Score: 0 - POST OP HYDRATION Hydration Status: Adequate & Stable
--- NOTE | 2019-03-15 11:30 | PCM.PRNOTE ---
- Free Text/Narrative Note: Date: 03/15/2019 Operation: right breast partial mastectomy Indication: symptomatic fibrocystic disease Surgeon: Dony Verduzco MD Findings: 2 x 2 x 2 well circumscribed firm, rubbery tissue at 11 o clock 3 cm from the nipple. Detailed Report: The patient was taken to the operating room and placed in supine position. Timeout was performed, and LMA anesthesia was initiated. The right chest was prepped and draped in usual sterile fashion. A total of 10 cc of 0.5% Marcaine with epinephrine was injected along the interface of the skin and areola at the upper outer quadrant. The scalpel was used to make an incision through the dermis, and Bovie monopolar energy was used to dissect down to the lesion in question. Using palpation as a guide, a cylindrical core of tissue at the 11 o' clock position 3 cm from the nipple was created, and the lesion in question was successfully excised. The specimen was placed in formalin and sent for pathology. The wound cavity was hemostatic. Interrupted 3-0 Vicryl sutures were placed in the deep dermal layer to reapproximate the skin edges, and a running 4-0 Vicryl stitch was used to close the skin. The wound was dressed with Dermabond. The patient tolerated the procedure well, no complications. Dony Verduzco MD General Surgery
--- NOTE | 2019-03-15 12:29 | PCM48HPAN ---
Post Anesthesia Note - EVALUATION WITHIN 48HRS OF ANESTHETIC Vital Signs in Normal Range: Yes Patient Participated in Evaluation: Yes Respiratory Function Stable: Yes Airway Patent: Yes Cardiovascular Function Stable: Yes Hydration Status Stable: Yes Pain Control Satisfactory: Yes Nausea and Vomiting Control Satisfactory: Yes Mental Status Recovered: Yes Vital Signs: Last Vital Signs Temp 36.7 C 03/15/19 11:51 Pulse 62 03/15/19 11:51 Resp 17 03/15/19 11:51 BP 108/82 03/15/19 11:51 Pulse Ox 100 03/15/19 11:51
[2019-03-15 12:42] VITALS: BP 108/71; PULSE 59
== END 2019-03-15 12:38 | disposition home or self-care (01) ==
LOC: JD.SDS 09:43
PROVIDERS: ATTEND Surgery
DX: N60.11 Diffuse cystic mastopathy of right breast (principal); K21.9 Gastro-esophageal reflux disease without esophagitis; Z91.040 Latex allergy status
CPT/HCPCS: 19120; 81025; J0690; J1100; J1885; J2250; J2405; J2704; J3010; J3490; J7120; 01610